=== PATIENT | female | born 1955 | race Caucasian/White ===

== ENCOUNTER 2016-08-07 11:51 | Outpatient (CLI) | payer BC | END 2016-08-07 11:52 | disposition home or self-care (01) | DX: I10 Essential (primary) hypertension (principal); R73.01 Impaired fasting glucose; Z79.899 Other long term (current) drug therapy; E78.00 Pure hypercholesterolemia, unspecified ==

== ENCOUNTER 2016-09-18 10:54 | Outpatient (CLI) | payer BC | END 2016-09-18 10:55 | disposition home or self-care (01) | DX: Z12.31 Encounter for screening mammogram for malignant neoplasm of breast (principal) ==

== ENCOUNTER 2016-11-29 08:03 | Day surgery (SDC) | payer BC ==
[2016-11-29] MEDS ORDERED: LACTATED RINGERS 1,000 ML IV ONE (08:21)
--- NOTE | 2016-11-29 09:20 | HISTORY & PHYSICAL EXAMINATION ---
HPI - History of Present Illness HPI Comment/Other: History of Present Illness: Patient is here for screening colonoscopy Current Meds: BYSTOLIC 10 MG TABS (NEBIVOLOL HCL) Take one tablet by mouth daily LISINOPRIL 40 MG TABS (LISINOPRIL) Take one tablet by mouth daily HYDROCHLOROTHIAZIDE 12.5 MG CAPS (HYDROCHLOROTHIAZIDE) Take one tablet by mouth every morning Past Medical History: Reviewed history from 08/07/2016 and no changes required: HTN Hyperchol Post Menopausal ~age 50 Stress incontinence (improves w/ weight loss) Depression Past Surgical History: Reviewed history from 08/07/2016 and no changes required: L4L5 laminectomy 2005 (L&I) Nani 2007 Appy - Dr. Garcia Hand surgery Family History Summary: Reviewed history Last on 04/09/2014 and no changes required:10/16/2016 Brother (full) - Has a Hx of Lung/Respiratory Disease - Entered On: 04/19/2015 General Comments - FH: Dad: lung ca - alive (no contact) Mom: pulmonary fibrosis and pulmonary HTN, chf, dm, ibs. 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 [employer] - previously worked for local [employer] Quit smoking 1997 - 28yr >1ppd EtOH - once or twice/month glass or two of wine 1 child/3 step children Previous Tobacco Use: Signed On 08/07/2016 Smoked Tobacco Use: Former smoker Cigarettes: Yes Year quit: 1997 Years Since Last Quit: 21 years, 4 months, 1 days Passive smoke exposure: no Drug use: no HIV high-risk behavior: no Caffeine use: 3 drinks per day Previous Alcohol Use: Signed On - 08/07/2016 Alcohol use: yes Type: rarely Drinks per day: social Exercise: yes Times per week: 7 Type of Exercise: walk 30 minutes Seatbelt use: 100 % Sun Exposure: occasionally Family History Risk Factors: Family History of MO in females < 65 years old: no Family History of MO in males < 55 years old: no Mammogram History: Date of Last Mammogram: 09/18/2016 PAP Smear History: Date of Last PAP Smear: 04/09/2014 Review of Systems See HPI Physical Exam General: well developed, well nourished, in no acute distress Lungs: clear bilaterally to A & P Heart: regular rate and rhythm, S1, S2 without murmurs, rubs, gallops, or clicks Abdomen: bowel sounds positive; abdomen soft and non-tender without masses, organomegaly, or hernias noted Pulses: pulses normal in all 4 extremities Extremities: no clubbing, cyanosis, edema, or deformity noted with normal full range of motion of all joints Cervical Nodes: no significant adenopathy Psych: alert and cooperative; normal mood and affect; normal attention span and concentration Impression & Recommendations: Problem # 1: screening for colon cancer Proceed with colonoscopy PMH/PSH - Past Medical History Cardiovascular: positive: Hypertension, High cholesterol Respiratory: positive: None Endocrine/Autoimmune: positive: None GI: positive: None : positive: None HEENT: positive: None Psych: positive: Depression Musculoskeletal: positive: None Derm: positive: None MRSA Hx?: No - Past Surgical History General: positive: Cholecystectomy, Appendectomy Ortho: positive: Spine surgery Social & Family Hx - Social History Does the pt smoke?: No Smoking Status: Former smoker Meds/Allgy - Home Medications Home Medications: Ambulatory Orders Medication Instructions Recorded Confirmed Hydrochlorothiazide 12.5 mg PO DAILY 05/07/15 11/29/16 Lisinopril 40 mg PO DAILY 05/07/15 11/29/16 Nebivolol HCl [Bystolic] 10 mg PO DAILY 05/07/15 11/29/16 - Allergies Allergies/Adverse Reactions: Allergies Allergy/AdvReac Type Severity Reaction Status Date / Time No Known Drug Allergies Allergy Verified 05/07/15 13:08 Exam - Vital Signs Vital Signs: Vital Signs x48h Temp Pulse Resp BP Pulse Ox 11/29/16 08:09 36.1 C L 65 16 154/94 H 96
[2016-11-29] MEDS ORDERED: MIDAZOLAM 2 MG/2 ML VIAL IVP ONE (09:27)
[2016-11-29] MEDS ORDERED: fentaNYL 100 MCG/2 ML VIAL IVP ONE (09:27)
[2016-11-29 10:26] VITALS: BP 92/63
== END 2016-11-29 08:04 | disposition home or self-care (01) ==
LOC: SDS 08:03
PROVIDERS: ATTEND Surgery
PROC: 0DBP8ZZ Excision of Rectum, Via Natural or Artificial Opening Endoscopic (ICD-10-PCS; 2016-11-29)
PROC: 0DBK8ZZ Excision of Ascending Colon, Via Natural or Artificial Opening Endoscopic (ICD-10-PCS; principal; 2016-11-29 09:00)
DX: Z12.11 Encounter for screening for malignant neoplasm of colon (principal); D12.3 Benign neoplasm of transverse colon; K62.1 Rectal polyp; K57.30 Diverticulosis of large intestine without perforation or abscess without bleeding; K64.8 Other hemorrhoids; I10 Essential (primary) hypertension; E78.00 Pure hypercholesterolemia, unspecified; F32.9 Major depressive disorder, single episode, unspecified; Z87.891 Personal history of nicotine dependence
CPT/HCPCS: 45380; J7120; 88305

== ENCOUNTER 2017-01-10 15:00 | Outpatient (CLI) | payer BC ==
[2017-01-21 14:51] LABS: TEST RESULT REPORT (())
== END 2017-01-10 15:01 | disposition home or self-care (01) ==
LOC: LAB.R 15:00
PROVIDERS: ATTEND Family Medicine
DX: L08.89 Other specified local infections of the skin and subcutaneous tissue (principal)
CPT/HCPCS: 81599; 87070; 87205; 87252

== ENCOUNTER 2017-05-21 08:16 | Outpatient (CLI) | payer BC ==
[2017-05-21 08:45] LABS: BASOPHILS # (AUTO) 0.5 10^3/uL (0.0-0.1); BASOPHILS % (AUTO) 5.1 %; EOSINOPHILS # (AUTO) 0.4 10^3/uL (0.0-0.7); EOSINOPHILS % (AUTO) 3.9 %; HCT - HEMATOCRIT 48.7 % (37.0-47.0); HGB - HEMOGLOBIN 16.8 g/dL (12.0-16.0); LYMPHOCYTES # (AUTO) 1.8 10^3/uL (1.5-3.5); LYMPHOCYTES % (AUTO) 17.2 %; MEAN CORPUSCULAR HGB CONC 34.4 g/dL (32.0-36.0); MEAN CORPUSCULAR VOLUME 92.9 fL (81.0-99.0); MONOCYTES # (AUTO) 0.9 10^3/uL (0.0-1.0); NEUTROPHILS % (AUTO) 65.8 %; NUCLEATED RED BLOOD CELLS AUTO 0.1 /100WBC; RED BLOOD COUNT 5.24 10^6/uL (4.20-5.40); RED CELL DISTRIBUTION WIDTH 13.7 % (12.0-15.0); UNCORRECTED WHITE BLOOD COUNT 10.7 x10^3/uL; WHITE BLOOD COUNT 10.7 x10^3/uL (4.8-10.8)
[2017-05-21 09:00] LABS: HEMOGLOBIN A1C 0.78 g/dL
[2017-05-21 09:28] LABS: ALBUMIN/GLOBULIN RATIO 1.3 (1.0-2.2); BILIRUBIN,TOTAL 0.5 mg/dL (0.2-1.0); BUN - BLOOD UREA NITROGEN 13 mg/dL (6-20); CALCIUM 9.3 mg/dL (8.5-10.3); CARBON DIOXIDE - CO2 26 mmol/L (21-32); CHLORIDE 101 mmol/L (101-111); CHOL/HDL RATIO 6.1 (<4.4); CHOLESTEROL 219 mg/dL; CREATININE 0.9 mg/dL (0.4-1.0); GFR - MDRD 64 (>89); GLUCOSE 120 mg/dL (70-100); HDL CHOLESTEROL 36 mg/dL; LDL/HDL RATIO 4.4 (<4.4); POTASSIUM 3.3 mmol/L (3.5-5.0); SODIUM 140 mmol/L (135-145); TOTAL PROTEIN 7.2 g/dL (6.7-8.2); TRIGLYCERIDES 116 mg/dL; VLDL CHOLESTEROL 23 mg/dL
--- NOTE | 2017-05-21 13:05 | XRAY Report ---
CHEST, TWO VIEWS: 05/21/2017 HISTORY: Shortness of breath. COMPARISON: None. FINDINGS: Healed left rib fractures. Heart size normal. Lungs clear. No pleural effusion or pneum othorax. Surgical clips upper abdomen. Minimal early degenerative change thoracic spine. IMPRESSION: NEGATIVE FOR ACUTE OR SIGNIFICANT FINDINGS CHEST X-RAY. JOB #: [id number] EXT JOB #:[id number]
== END 2017-05-21 08:17 | disposition home or self-care (01) ==
LOC: LAB 08:16
PROVIDERS: ATTEND Physician Assistant Medical
DX: Z00.00 Encounter for general adult medical examination without abnormal findings (principal); R06.00 Dyspnea, unspecified; E78.00 Pure hypercholesterolemia, unspecified; R73.01 Impaired fasting glucose; Z51.81 Encounter for therapeutic drug level monitoring; Z79.899 Other long term (current) drug therapy
CPT/HCPCS: 36415; 71020; 80053; 80061; 83036; 84443; 85025

== ENCOUNTER 2017-06-11 23:46 | Emergency (ER) | payer BC ==
[2017-06-11] MEDS ORDERED: ASPIRIN CHEW 81 MG TABLET PO STA (23:49)
[2017-06-12 00:14] LABS: BASOPHILS % (AUTO) 3.7 %; EOSINOPHILS % (AUTO) 2.7 %; LYMPHOCYTES % (AUTO) 17.4 %; MEAN CORPUSCULAR HEMOGLOBIN 31.9 pg (27.0-31.0); MEAN CORPUSCULAR HGB CONC 34.5 g/dL (32.0-36.0); MEAN CORPUSCULAR VOLUME 92.4 fL (81.0-99.0); MEAN PLATELET VOLUME 7.9 fL (7.9-10.8); MONOCYTES % (AUTO) 7.1 %; NEUTROPHILS % (AUTO) 69.1 %; PLT - PLATELET COUNT 292 10^3/uL (130-450); RED CELL DISTRIBUTION WIDTH 13.7 % (12.0-15.0); WHITE BLOOD COUNT 13.9 x10^3/uL (4.8-10.8)
[2017-06-12 00:28] LABS: ALBUMIN 3.7 g/dL (3.2-5.5); ALBUMIN/GLOBULIN RATIO 1.1 (1.0-2.2); BILIRUBIN,TOTAL 0.3 mg/dL (0.2-1.0); CALCIUM 9.1 mg/dL (8.5-10.3); CREATININE 1.5 mg/dL (0.4-1.0); TOTAL PROTEIN 7.1 g/dL (6.7-8.2)
--- NOTE | 2017-06-12 00:30 | XRAY Preliminary Report ---
Exam: XR CHEST 2 VIEW PA/LAT IMPRESSION: 1. No acute abnormality seen in the chest. [facility] SITE ID: [id number]
--- NOTE | 2017-06-12 00:32 | XRAY Report ---
EXAM: CHEST RADIOGRAPHY EXAM DATE: 06/12/2017 12:13 AM. CLINICAL HISTORY: Chest pain . COMPARISON: 05/21/2017. TECHNIQUE: 2 views. FINDINGS: Lungs/Pleura: No alveolar consolidation or pleural effusion. No pneumothorax. Mediastinum: Heart and mediastinal contours are unremarkable. Other: Old left rib fractures. IMPRESSION: 1. No acute abnormality seen in the chest. [facility] Referring Provider Line: [phone] SITE ID: [id number]
[2017-06-12 00:37] LABS: ABNORMAL LYMPHS % (MANUAL) 0 %
[2017-06-12 01:20] LABS: BAND NEUTROPHILS % (MANUAL) 2 %; EOSINOPHILS # (MANUAL) 0.7 10^3/uL (0-0.7); LYMPHOCYTES # (MANUAL) 2.4 10^3/uL (1.5-3.5); LYMPHOCYTES % (MANUAL) 17 %; MONOCYTES # (MANUAL) 1.3 10^3/uL (0.0-1.0); NEUTROPHILS # (MANUAL) 9.6 10^3/uL (1.5-6.6); NEUTROPHILS % (MANUAL) 67 %; PLATELET ESTIMATE, MANUAL NORMAL (130-450,000) (NORMAL); RBC MORPHOLOGY (MULTIPLE) NORMAL APPEARANCE (NORMAL)
[2017-06-12 01:21] LABS: DIFFERENTIAL COMMENT MANUAL DIFFERENTIAL
--- NOTE | 2017-06-12 02:52 | ED Physician Documentation ---
History of Present Illness - Stated complaint Stated Complaint: CHEST PAIN - Chief complaint Chief Complaint: Cardiac - History obtained from History obtained from: Patient (pt is here for evalution of chest pain. states that it started approx 3 hours prior to attival. states that she was sitting and watching TV when it started. no chortness of breath, no nausea or vomiting , no leg swelling. has hx of HTN but no DM. non-smoker. states that at the time of arrival the chest pain had improved somewhat but not resolved.) Review of Systems Constitutional: denies: Fever, Chills Nose: reports: Congestion, Sinus pressure / pain. denies: Rhinorrhea / runny nose Throat: denies: Sore throat Cardiac: reports: Chest pain / pressure. denies: Palpitations, Pedal edema, Calf pain Respiratory: denies: Dyspnea, Cough, Hemoptysis, Wheezing GI: denies: Abdominal Pain, Nausea, Vomiting, Constipation, Diarrhea : denies: Dysuria, Frequency Skin: denies: Rash, Lesions Musculoskeletal: denies: Neck pain, Extremity swelling Neurologic: denies: Generalized weakness, Altered mental status, Headache, LOC PD PAST MEDICAL HISTORY - Past Medical History Past Medical History: Yes Cardiovascular: Hypertension, High cholesterol Respiratory: None Endocrine/Autoimmune: None GI: None : None HEENT: None Psych: Depression Musculoskeletal: None Derm: None - Past Surgical History Past Surgical History: Yes General: Cholecystectomy, Appendectomy Ortho: Spine surgery - Present Medications Home Medications: Ambulatory Orders Medication Instructions Recorded Confirmed Lisinopril 40 mg PO DAILY 05/07/15 06/11/17 Nebivolol HCl [Bystolic] 10 mg PO DAILY 05/07/15 06/11/17 hydroCHLOROthiazide 12.5 mg PO DAILY 05/07/15 06/11/17 [Hydrochlorothiazide] - Allergies Allergies/Adverse Reactions: Allergies Allergy/AdvReac Type Severity Reaction Status Date / Time No Known Drug Allergies Allergy Verified 06/11/17 23:53 - Social History Does the pt smoke?: No Smoking Status: Never smoker Does the pt drink ETOH?: No Does the pt have substance abuse?: No - Immunizations Immunizations are current?: Yes - POLST Patient has POLST: No PD ED PE NORMAL - Vitals Vital signs reviewed: Yes - General General: Alert and oriented X 3, No acute distress, Well developed/nourished - HEENT HEENT: Atraumatic, Moist mucous membranes - Cardiac Cardiac: RRR, No murmur - Respiratory Respiratory: No respiratory distress, Clear bilaterally - Abdomen Abdomen: Soft, Non tender, Non distended - Back Back: No CVA TTP - Derm Derm: Normal color, No rash - Extremities Extremities: No deformity, No tenderness to palpate, No calf tenderness / cord - Neuro Neuro: Alert and oriented X 3, Normal speech Eye Opening: Spontaneous Motor: Obeys Commands Verbal: Oriented GCS Score: 15 - Psych Psych: Normal mood, Normal affect Results - Vitals Vitals: Vital Signs - 24 hr 06/11/17 06/12/17 06/12/17 23:49 01:24 02:53 Temperature 36.4 C L Heart Rate 71 69 67 Respiratory 18 15 18 Rate Blood Pressure 157/95 H 134/75 H 126/72 O2 Saturation 95 94 95 06/12/17 06/12/17 03:41 05:11 Temperature Heart Rate 68 70 Respiratory 16 16 Rate Blood Pressure 126/72 126/80 O2 Saturation 94 93 Oxygen O2 Source Room air - EKG (time done) 2354 Rate: Rate (enter#) Rhythm: NSR [place]: Normal Intervals: Normal MS, QRS normal QRS: Normal Ischemia: Normal ST segments 0334 Rate: Rate (enter#) Rhythm: NSR [place]wing: Normal Intervals: Normal MS, QRS normal QRS: Normal Ischemia: Normal ST segments Compare to prior EKG: Unchanged from prior EKG - Labs Labs: Laboratory Tests 06/11/17 06/11/17 06/11/17 00:01 00:01 00:01 WBC 13.9 H RBC 5.00 Hgb 16.0 Hct 46.3 MCV 92.4 MCH 31.9 H MCHC 34.5 RDW 13.7 Plt Count 292 MPV 7.9 Neut # Not Reportable Lymph # Not Reportable [place] # Not Reportable Eos # Not Reportable Baso # Not Reportable Absolute Nucleated RBC Not Reportable Total Counted 100 Band Neuts % (Manual) 2 Abnorm Lymph % (Manual) 0 Nucleated RBC % Not Reportable Neutrophils # (Manual) 9.6 H Lymphocytes # (Manual) 2.4 Monocytes # (Manual) 1.3 H Eosinophils # (Manual) 0.7 Basophils # (Manual) 0.0 Differential Comment MANUAL DIFFERENTIAL Platelet Estimate NORMAL (130-450,000) RBC Morph Micro Appear NORMAL APPEARANCE Sodium 135 Potassium 3.2 L Chloride 95 L Carbon Dioxide 30 Anion Gap 10.0 BUN 15 Creatinine 1.5 H Estimated GFR (MDRD) 36 L Glucose 139 H Calcium 9.1 Total Bilirubin 0.3 AST 17 ALT 20 Alkaline Phosphatase 40 L Troponin I < 0.04 Total Protein 7.1 Albumin 3.7 Globulin 3.4 Albumin/Globulin Ratio 1.1 Lipase 41 06/12/17 06/12/17 02:50 05:59 WBC RBC Hgb Hct MCV MCH MCHC RDW Plt Count MPV Neut # Lymph # [place] # Eos # Baso # Absolute Nucleated RBC Total Counted Band Neuts % (Manual) Abnorm Lymph % (Manual) Nucleated RBC % Neutrophils # (Manual) Lymphocytes # (Manual) Monocytes # (Manual) Eosinophils # (Manual) Basophils # (Manual) Differential Comment Platelet Estimate RBC Morph Micro Appear Sodium Potassium Chloride Carbon Dioxide Anion Gap BUN Creatinine Estimated GFR (MDRD) Glucose Calcium Total Bilirubin AST ALT Alkaline Phosphatase Troponin I 0.06 0.23 Total Protein Albumin Globulin Albumin/Globulin Ratio Lipase - Rads (name of study) CXR Radiology: Final report received (Normal CXR), EMP read contemporaneously PD MEDICAL DECISION MAKING - ED course Complexity details: reviewed results, re-evaluated patient, considered differential, d/w patient, d/w internal audit consultant ED course: Pt with normal CXR, has normal ECG, first trop was undetectable, second was not positive but was detectable and the third was higher than the second. pt has remained stable. No STEMI on the ECG. pt was given ASA in the ER. lovenox given in the ER. discussed case with inpatient team will admit. Departure - Departure Disposition: 66 [facility] DC/Xfer Clinical Impression: NSTEMI (non-ST elevated myocardial infarction) Condition: Stable
[2017-06-12] MEDS ORDERED: ENOXAPARIN 100 MG/ML SYRINGE SUBQ STA (06:30)
[2017-06-12 09:48] VITALS: BP 118/64
== END 2017-06-12 09:40 | disposition short-term general hospital (02) ==
LOC: ED 23:46
DX: I21.4 Non-ST elevation (NSTEMI) myocardial infarction (principal); I10 Essential (primary) hypertension; E78.00 Pure hypercholesterolemia, unspecified
CPT/HCPCS: 36415; 71020; 80053; 83690; 84484; 85025; 93005; 96372; 99284; 99285; A9270; J1650

== ENCOUNTER 2017-06-12 09:45 | Outpatient (CLI) | payer BC | END 2017-06-12 09:46 | disposition short-term general hospital (02) | LOC: EMS 09:45 | PROVIDERS: ATTEND Surgery | DX: R07.89 Other chest pain (principal) | CPT/HCPCS: A0425; A0428 ==

== ENCOUNTER 2017-07-02 09:08 | Outpatient (CLI) | payer BC ==
[2017-07-02] MEDS ORDERED: ALBUTEROL NEB 2.5 MG/3 ML INH ONE (10:00)
== END 2017-07-02 09:09 | disposition home or self-care (01) ==
LOC: RT 09:08
PROVIDERS: ATTEND Physician Assistant Medical
DX: R06.09 Other forms of dyspnea (principal)
CPT/HCPCS: 94010

== ENCOUNTER 2017-07-16 08:00 | Outpatient (CLI) | payer BC ==
[2017-07-16 13:31] LABS: ALBUMIN 3.9 g/dL (3.2-5.5); ALBUMIN/GLOBULIN RATIO 1.2 (1.0-2.2); ALKALINE PHOSPHATASE 31 IU/L (42-121); ALT ALANINE AMINOTRANSFERASE 30 IU/L (10-60); AST ASPARTATE AMINOTRANSFERASE 23 IU/L (10-42); BILIRUBIN,TOTAL 0.4 mg/dL (0.2-1.0); BUN - BLOOD UREA NITROGEN 15 mg/dL (6-20); CALCIUM 9.1 mg/dL (8.5-10.3); CARBON DIOXIDE - CO2 29 mmol/L (21-32); CHLORIDE 102 mmol/L (101-111); CHOL/HDL RATIO 3.3 (<4.4); CHOLESTEROL 108 mg/dL; CREATININE 0.9 mg/dL (0.4-1.0); GFR - MDRD 64 (>89); GLUCOSE 106 mg/dL (70-100); HDL CHOLESTEROL 33 mg/dL; LDL CHOLESTEROL,CALCULATED 47 mg/dL; LDL/HDL RATIO 1.4 (<4.4); SODIUM 137 mmol/L (135-145); TOTAL PROTEIN 7.1 g/dL (6.7-8.2); VLDL CHOLESTEROL 28 mg/dL
[2017-07-16 13:50] LABS: HB2 TOTAL 18.5 g/dL; HEMOGLOBIN A1C 0.75 g/dL; HEMOGLOBIN A1C % 5.9 % (4.6-6.2)
== END 2017-07-16 08:01 | disposition home or self-care (01) ==
LOC: LAB.WCP 08:00
PROVIDERS: ATTEND Physician Assistant Medical
DX: I25.10 Atherosclerotic heart disease of native coronary artery without angina pectoris (principal); E78.00 Pure hypercholesterolemia, unspecified; R73.01 Impaired fasting glucose; Z51.81 Encounter for therapeutic drug level monitoring; Z79.899 Other long term (current) drug therapy
CPT/HCPCS: 36415; 80053; 80061; 83036; 83721

== ENCOUNTER 2017-07-25 14:08 | Outpatient (CLI) | payer BC ==
[2017-07-25 19:03] LABS: BASOPHILS # (AUTO) 0.1 10^3/uL (0.0-0.1); BASOPHILS % (AUTO) 0.7 %; EOSINOPHILS # (AUTO) 0.3 10^3/uL (0.0-0.7); EOSINOPHILS % (AUTO) 2.9 %; HGB - HEMOGLOBIN 16.3 g/dL (12.0-16.0); LYMPHOCYTES # (AUTO) 2.3 10^3/uL (1.5-3.5); LYMPHOCYTES % (AUTO) 21.1 %; MEAN CORPUSCULAR HEMOGLOBIN 31.9 pg (27.0-31.0); MEAN CORPUSCULAR HGB CONC 33.5 g/dL (32.0-36.0); MEAN CORPUSCULAR VOLUME 95.1 fL (81.0-99.0); MEAN PLATELET VOLUME 8.1 fL (7.9-10.8); MONOCYTES # (AUTO) 0.9 10^3/uL (0.0-1.0); MONOCYTES % (AUTO) 8.6 %; NEUTROPHILS # (AUTO) 7.3 10^3/uL (1.5-6.6); NEUTROPHILS % (AUTO) 66.7 %; PLT - PLATELET COUNT 304 10^3/uL (130-450); RED BLOOD COUNT 5.11 10^6/uL (4.20-5.40); RED CELL DISTRIBUTION WIDTH 14.2 % (12.0-15.0)
== END 2017-07-25 14:09 | disposition home or self-care (01) ==
LOC: LAB.WCP 14:08
PROVIDERS: ATTEND Physician Assistant Medical
DX: R78.89 Finding of other specified substances, not normally found in blood (principal)
CPT/HCPCS: 36415; 81256; 85025